=== PATIENT | male | born 1990 | race Two or more races ===

== ENCOUNTER 2023-01-16 13:02 | Emergency (ER) | payer OTHER ==
[2023-01-16 13:10] VITALS: BP 132/86; PULSE 78; RESP 20; TEMP 98.1; BMI 34.7
[2023-01-16] MEDS ORDERED: KETOROLAC TROMETHAMINE 30 MG/1 ML VIAL IVPUSH ONE (13:13)
[2023-01-16] MEDS ORDERED: ACETAMINOPHEN 500 MG TABLET (FP) PO ONE (13:13)
[2023-01-16] MEDS ORDERED: SODIUM CHLORIDE 0.9% 500 ML INFUS.BAG IV ONE (13:13)
[2023-01-16] MEDS ORDERED: KETOROLAC TROMETHAMINE 30 MG/1 ML VIAL ONE (13:40)
[2023-01-16] MEDS ORDERED: ACETAMINOPHEN 325 MG TABLET (FP) ONE (13:40)
[2023-01-16 14:03] LABS: BASO % 0.5 % (0-2.0); EOS % 2.6 % (0-4.5); HEMATOCRIT 47.3 % (35.4-49); HEMOGLOBIN 15.7 GM/dL (11.7-16.9); LYMPH % 31.4 % (8-40); MCH 28.8 pg (25.7-33.7); MCHC 33.2 g/dl (32.0-35.9); MEAN CELL VOLUME 86.8 fl (80-96); MEAN PLT VOLUME 10.1 fl (7.5-11.1); MONO % 6.8 % (3.8-10.2); NEUT % 58.7 % (42.8-82.8); PLATELET COUNT 195 10^3/uL (134-434); RBC 5.45 M/mm3 (4.00-5.60); RDW 13.5 % (11.9-15.9); WHITE BLOOD COUNT 6.3 K/mm3 (4.0-10.0)
[2023-01-16 14:21] LABS: EPI CELLS 3 /uL (0-25.1); HYALINE CASTS 0 /uL (0-3.1); PH,URINE 5.5 (5.0-8.0); URINE APPEARANCE CLOUDY; URINE BACTERIA 4 /uL (0-1359); URINE BILIRUBIN NEGATIVE (NEGATIVE); URINE COLOR RED; URINE GLUCOSE (UA) NEGATIVE (NEGATIVE); URINE KETONE NEGATIVE (NEGATIVE); URINE LEUK ESTERASE 1+ (NEGATIVE); URINE NITRITE NEGATIVE (NEGATIVE); URINE PROTEIN 1+ (NEGATIVE); URINE RBC 22675 /uL (0-23.9); URINE WBC 48 /uL (0-25.8)
[2023-01-16 14:22] LABS: POTASSIUM 4.5 mmol/L (3.5-5.1)
[2023-01-16 14:23] LABS: CALCIUM 9.3 mg/dL (8.5-10.1)
[2023-01-16 14:24] LABS: BLOOD UREA NITROGEN 11.8 mg/dL (7-18)
[2023-01-16] MEDS ORDERED: TAMSULOSIN HCL 0.4 MG CAP PO ONE (16:29)
[2023-01-16] MEDS ORDERED: TAMSULOSIN HCL 0.4 MG CAP ONE (16:37)
== END 2023-01-16 16:49 | disposition home or self-care (01) ==
LOC: JER 13:02
PROC: 3E033GC Introduction of Other Therapeutic Substance into Peripheral Vein, Percutaneous Approach (ICD-10-PCS; principal; 2023-01-16)
DX: N20.0 Calculus of kidney (principal)
CPT/HCPCS: 36415; 74176-TC; 80048; 81003; 85025; 87086; 99285-25

== ENCOUNTER 2023-02-03 02:19 | Day surgery (SDC) | payer OTHER ==
[2023-02-03 02:33] VITALS: BMI 29.7
[2023-02-03] MEDS ORDERED: KETOROLAC TROMETHAMINE 15 MG/ML VIAL IVPUSH ONE (02:44)
[2023-02-03] MEDS ORDERED: ONDANSETRON 4 MG/2 ML VIAL IVPUSH ONE ×2 (02:46→14:15)
[2023-02-03] MEDS ORDERED: KETOROLAC TROMETHAMINE 15 MG/ML VIAL ONE (02:50)
[2023-02-03] MEDS ORDERED: ONDANSETRON 4 MG/2 ML VIAL ONE ×2 (02:50→14:24)
[2023-02-03 03:21] LABS: BASO % 0.5 % (0-2.0); EOS % 3.6 % (0-4.5); HEMATOCRIT 45.6 % (35.4-49); HEMOGLOBIN 15.5 GM/dL (11.7-16.9); LYMPH % 44.9 % (8-40); MCH 28.4 pg (25.7-33.7); MCHC 33.9 g/dl (32.0-35.9); MEAN CELL VOLUME 83.7 fl (80-96); MONO % 9.4 % (3.8-10.2); NEUT % 41.6 % (42.8-82.8); PLATELET COUNT 216 10^3/uL (134-434); RBC 5.45 M/mm3 (4.00-5.60); RDW 13.4 % (11.9-15.9); WHITE BLOOD COUNT 8.9 K/mm3 (4.0-10.0)
[2023-02-03 03:24] LABS: POTASSIUM 3.3 mmol/L (3.5-5.1)
[2023-02-03 03:26] LABS: CALCIUM 8.9 mg/dL (8.5-10.1)
[2023-02-03 03:27] LABS: ALBUMIN 4.2 g/dl (3.4-5.0); BLOOD UREA NITROGEN 16.2 mg/dL (7-18)
[2023-02-03 03:32] LABS: BILIRUBIN,TOTAL 0.5 mg/dL (0.2-1); TOT PROT 8.2 g/dl (6.4-8.2)
[2023-02-03] MEDS ORDERED: LACTATED RINGERS SOLUTION 1000 ML INFUS.BAG IV ONE (03:55)
[2023-02-03] MEDS ORDERED: morphine CARPU-JECT 4 MG/1 ML DISP.SYRIN IVPUSH ONE (03:57)
[2023-02-03] MEDS ORDERED: morphine SULFATE 4 MG/ML VIAL ONE (04:02)
[2023-02-03 04:48] LABS: EPI CELLS 2 /uL (0-25.1); HYALINE CASTS 0 /uL (0-3.1); URINE APPEARANCE CLEAR; URINE BACTERIA 3 /uL (0-1359); URINE BILIRUBIN NEGATIVE (NEGATIVE); URINE COLOR YELLOW; URINE GLUCOSE (UA) NEGATIVE (NEGATIVE); URINE KETONE NEGATIVE (NEGATIVE); URINE LEUK ESTERASE NEGATIVE (NEGATIVE); URINE NITRITE NEGATIVE (NEGATIVE); URINE PROTEIN NEGATIVE (NEGATIVE); URINE RBC 17 /uL (0-23.9); URINE UROBILINOGEN 0.2 mg/dL (0.2-1.0); URINE WBC 9 /uL (0-25.8)
[2023-02-03 05:03] LABS: CREATININE 1.4 mg/dL (0.55-1.3)
[2023-02-03] MEDS ORDERED: SODIUM CHLORIDE 1,000 ML IV SCH (06:30)
[2023-02-03] MEDS ORDERED: ACETAMINOPHEN 325 MG TABLET (FP) ONE ×3 (06:31→18:36)
[2023-02-03] MEDS: ACETAMINOPHEN 325 MG TABLET (FP) PO SCH ×3 (06:40→18:39)
[2023-02-03] MEDS ORDERED: KETOROLAC TROMETHAMINE 15 MG/ML VIAL IVPUSH PRN ×2 (07:40→07:44)
[2023-02-03] MEDS ORDERED: TAMSULOSIN HCL 0.4 MG CAP ONE (08:32)
[2023-02-03] MEDS: TAMSULOSIN HCL 0.4 MG CAP PO SCH (08:41)
[2023-02-03] MEDS ORDERED: CEFTRIAXONE 1 GM/50 ML BAG ONE (09:10)
[2023-02-03] MEDS: CEFTRIAXONE 1 GM in DEXTROSE 5%-WATER - 50 ML IVPB SCH (09:43)
[2023-02-03 12:21] LABS: BASO % 0.4 % (0-2.0); EOS % 2.2 % (0-4.5); HEMATOCRIT 42.3 % (35.4-49); HEMOGLOBIN 14.3 GM/dL (11.7-16.9); LYMPH % 31.4 % (8-40); MCH 28.5 pg (25.7-33.7); MCHC 33.9 g/dl (32.0-35.9); MEAN PLT VOLUME 9.2 fl (7.5-11.1); PLATELET COUNT 155 10^3/uL (134-434); RBC 5.03 M/mm3 (4.00-5.60); WHITE BLOOD COUNT 7.1 K/mm3 (4.0-10.0)
[2023-02-03] MEDS ORDERED: LIDOCAINE 5% TOPICAL PATCH ONE (14:23)
[2023-02-03] MEDS: LIDOCAINE 5% TOPICAL PATCH TP SCH (14:29)
[2023-02-03] MEDS ORDERED: DEXTROSE 5%-NORMAL SALINE 1,000 ML IV SCH (18:45)
[2023-02-03] MEDS ORDERED: LIDOCAINE PATCH REMOVAL MC SCH (22:00)
[2023-02-04] MEDS: oxyCODONE HCL 5 MG TABLET PO PRN ×2 (00:01→08:56)
[2023-02-04] MEDS: ACETAMINOPHEN 325 MG TABLET (FP) PO PRN ×2 (00:03→08:55)
[2023-02-04] MEDS: ACETAMINOPHEN 325 MG TABLET (FP) PO SCH ×3 (00:10→13:26)
[2023-02-04] MEDS: TAMSULOSIN HCL 0.4 MG CAP PO SCH (08:56)
[2023-02-04] MEDS ORDERED: cefTRIAXone SODIUM 1 GM VIAL ONE (10:53)
[2023-02-04] MEDS ORDERED: KETOROLAC TROMETHAMINE 15 MG/ML VIAL IVPUSH PRN ×2 (10:56→11:08)
[2023-02-04] MEDS: CEFTRIAXONE 1 GM in DEXTROSE 5%-WATER - 50 ML IVPB SCH (10:57)
[2023-02-04] MEDS: LIDOCAINE 5% TOPICAL PATCH TP SCH (13:20)
[2023-02-04] MEDS ORDERED: PROPOFOL 40 ML ONE (13:50)
[2023-02-04] MEDS ORDERED: ceFAZolin SODIUM 1 GM VIAL IVPB ONE (14:19)
[2023-02-04] MEDS ORDERED: DEXAMETHASONE SOD PHOSPHATE 4 MG/1 ML VIAL ONE (14:36)
[2023-02-04] MEDS ORDERED: ceFAZolin SODIUM 1 GM VIAL ONE ×2 (14:36)
[2023-02-04] MEDS ORDERED: KETOROLAC TROMETHAMINE 30 MG/1 ML VIAL ONE (14:36)
[2023-02-04] MEDS ORDERED: ONDANSETRON 4 MG/2 ML VIAL ONE (14:36)
[2023-02-04] MEDS ORDERED: oxyCODONE HCL 5 MG TABLET PO PRN ×2 (14:45→15:36)
[2023-02-04] MEDS ORDERED: ONDANSETRON 4 MG/2 ML VIAL IVPUSH PRN ×2 (14:45→15:36)
[2023-02-04] MEDS ORDERED: DEXTROSE 5%-NORMAL SALINE 1,000 ML IV SCH (15:36)
[2023-02-04 16:31] VITALS: BP 128/80; PULSE 70; RESP 18
[2023-02-04 16:41] VITALS: TEMP 97.6
[2023-02-04] MEDS ORDERED: ACETAMINOPHEN 325 MG TABLET (FP) PO SCH (18:00)
[2023-02-04] MEDS ORDERED: LIDOCAINE PATCH REMOVAL MC SCH (22:00)
[2023-02-05] MEDS ORDERED: TAMSULOSIN HCL 0.4 MG CAP PO SCH (08:30)
[2023-02-05] MEDS ORDERED: LIDOCAINE 5% TOPICAL PATCH TP SCH (10:00)
[2023-02-05] MEDS ORDERED: CEFTRIAXONE 1 GM in DEXTROSE 5%-WATER - 50 ML IVPB SCH (10:00)
== END 2023-02-04 19:06 | disposition home or self-care (01) ==
LOC: JER 02:19 → UNDOADMOB 04:54 → JERBED 04:54 → J6S 21:20 → JERBED 21:20 → JASUSAT 02-04 10:49 → J6S 02-04 11:08 → JASUSAT 02-04 19:06
PROVIDERS: ATTEND Nurse Practitioner Family
PROC: 0T778DZ Dilation of Left Ureter with Intraluminal Device, Via Natural or Artificial Opening Endoscopic (ICD-10-PCS; principal; 2023-02-04 12:30)
DX: N20.0 Calculus of kidney (principal)
CPT/HCPCS: 36415; 74176-TC; 76000-TC-FY; 80053; 81003; 85025; 85027; 87086; 94760; 99285-25; C2617

== ENCOUNTER 2023-02-17 04:51 | Day surgery (SDC) | payer OTHER ==
[2023-02-16 08:19] VITALS: BMI 29.0
[2023-02-17] MEDS ORDERED: MIDAZOLAM HCL 2 MG/2 ML SINGLE DOSE VIAL ONE (13:30)
[2023-02-17] MEDS ORDERED: LIDOCAINE HCL/PF 2% SDV 5ML VIAL ONE (13:30)
[2023-02-17] MEDS ORDERED: PROPOFOL 20 ML ONE ×2 (13:30→13:42)
[2023-02-17] MEDS ORDERED: ceFAZolin SODIUM 1 GM VIAL IVPB ONE (13:45)
[2023-02-17] MEDS ORDERED: ceFAZolin SODIUM 1 GM VIAL ONE (13:48)
[2023-02-17] MEDS ORDERED: KETOROLAC TROMETHAMINE 30 MG/1 ML VIAL ONE (13:48)
[2023-02-17] MEDS ORDERED: DEXAMETHASONE SOD PHOSPHATE 4 MG/1 ML VIAL ONE (13:48)
[2023-02-17] MEDS ORDERED: ONDANSETRON 4 MG/2 ML VIAL ONE (13:48)
[2023-02-17] MEDS ORDERED: ONDANSETRON 4 MG/2 ML VIAL IVPUSH PRN (14:17)
[2023-02-17] MEDS ORDERED: oxyCODONE HCL 5 MG TABLET PO PRN (14:17)
[2023-02-17] MEDS ORDERED: LACTATED RINGERS SOLUTION 1,000 ML IV SCH (14:30)
[2023-02-17] MEDS ORDERED: oxyCODONE HCL 5 MG TABLET ONE (15:35)
[2023-02-17 15:46] VITALS: PULSE 82
[2023-02-17 15:50] VITALS: BP 125/85; TEMP 97.3
[2023-02-17 16:46] VITALS: RESP 20
== END 2023-02-17 16:46 | disposition home or self-care (01) ==
LOC: JASU-SURG 04:51
PROVIDERS: ATTEND Urology
PROC: 0T778DZ Dilation of Left Ureter with Intraluminal Device, Via Natural or Artificial Opening Endoscopic (ICD-10-PCS; 2023-02-17)
PROC: 0TC78ZZ Extirpation of Matter from Left Ureter, Via Natural or Artificial Opening Endoscopic (ICD-10-PCS; principal; 2023-02-17 13:30)
DX: N20.1 Calculus of ureter (principal)
CPT/HCPCS: 76000-TC-FY; 94760; C1758; C2617

== ENCOUNTER 2023-07-03 08:23 | Emergency (ER) | payer OTHER ==
[2023-07-03 08:38] VITALS: BMI 29.0
[2023-07-03] MEDS ORDERED: SODIUM CHLORIDE 0.9% 500 ML INFUS.BAG IV ONE (09:14)
[2023-07-03] MEDS ORDERED: KETOROLAC TROMETHAMINE 30 MG/1 ML VIAL IVPUSH ONE (09:14)
[2023-07-03] MEDS ORDERED: ONDANSETRON 4 MG/2 ML VIAL IVPUSH ONE (09:15)
[2023-07-03] MEDS ORDERED: KETOROLAC TROMETHAMINE 30 MG/1 ML VIAL ONE (09:34)
[2023-07-03] MEDS ORDERED: ONDANSETRON 4 MG/2 ML VIAL ONE (09:34)
[2023-07-03 09:57] LABS: URINE APPEARANCE CLEAR; URINE BILIRUBIN NEGATIVE (NEGATIVE); URINE COLOR YELLOW; URINE GLUCOSE (UA) NEGATIVE (NEGATIVE); URINE KETONE NEGATIVE (NEGATIVE); URINE LEUK ESTERASE NEGATIVE (NEGATIVE); URINE NITRITE NEGATIVE (NEGATIVE); URINE PROTEIN NEGATIVE (NEGATIVE); URINE UROBILINOGEN 0.2 mg/dL (0.2-1.0)
[2023-07-03 10:17] LABS: CHLORIDE 106 mmol/L (98-107); SODIUM 136 mmol/L (136-145)
[2023-07-03 10:20] LABS: BLOOD UREA NITROGEN 14.2 mg/dL (7-18); CALCIUM 9.4 mg/dL (8.5-10.1); CO2 27 mmol/L (21-32); GLUCOSE,RANDOM 95 mg/dL (74-106)
[2023-07-03 10:23] LABS: SGOT/AST 77 U/L (15-37)
[2023-07-03 10:24] LABS: TOT PROT 8.2 g/dl (6.4-8.2)
[2023-07-03 10:26] LABS: ALK PHOS 65 U/L (45-117)
[2023-07-03 10:40] LABS: ANION GAP 3 mmol/L (4-13); BILIRUBIN,TOTAL 0.5 mg/dL (0.2-1); POTASSIUM 6.2 mmol/L (3.5-5.1); SGPT/ALT 44 U/L (13-61)
[2023-07-03 10:46] LABS: BASO % 0.5 % (0-2.0); EOS % 1.3 % (0-4.5); HEMATOCRIT 46.3 % (35.4-49); LYMPH % 24.1 % (8-40); MCH 29.5 pg (25.7-33.7); MCHC 34.5 g/dl (32.0-35.9); MEAN CELL VOLUME 85.6 fl (80-96); MEAN PLT VOLUME 9.8 fl (7.5-11.1); MONO % 7.2 % (3.8-10.2); NEUT % 66.9 % (42.8-82.8); PLATELET COUNT 342 10^3/uL (134-434); RDW 13.6 % (11.9-15.9)
[2023-07-03 10:53] LABS: WHITE BLOOD COUNT 10.3 K/mm3 (4.0-10.0)
[2023-07-03 11:18] LABS: EPI CELLS 0.2 /uL (0-25.1); URINE RBC 0.7 /uL (0-23.9); URINE WBC 0.1 /uL (0-25.8)
[2023-07-03 13:07] VITALS: BP 127/89; PULSE 68; RESP 18; TEMP 98.1
== END 2023-07-03 13:39 | disposition home or self-care (01) ==
LOC: JER 08:23
PROC: 3E0333Z Introduction of Anti-inflammatory into Peripheral Vein, Percutaneous Approach (ICD-10-PCS; principal; 2023-07-03)
PROC: 3E033GC Introduction of Other Therapeutic Substance into Peripheral Vein, Percutaneous Approach (ICD-10-PCS; 2023-07-03)
DX: R10.9 Unspecified abdominal pain (principal); R11.0 Nausea; R30.0 Dysuria; R35.0 Frequency of micturition; N20.0 Calculus of kidney
CPT/HCPCS: 36415; 74176-TC; 80053; 81003; 84132; 85025; 87086; 99284-25

== ENCOUNTER 2023-07-27 21:10 | Emergency (ER) | payer OTHER ==
[2023-07-27 21:18] VITALS: TEMP 98; BMI 29.7
[2023-07-27] MEDS ORDERED: DEXAMETHASONE SOD PHOSPHATE 10 MG/1 ML VIAL ONE (22:17)
[2023-07-27] MEDS ORDERED: ACETAMINOPHEN 325 MG TABLET (FP) ONE (22:22)
[2023-07-27] MEDS ORDERED: ONDANSETRON *ODT* 4 MG TABLET ONE (22:22)
[2023-07-27] MEDS: ONDANSETRON 4 MG TABLET PO ONE (22:28)
[2023-07-27] MEDS: DEXAMETHASONE SOD PHOSPHATE 10 MG/1 ML VIAL IM ONE (22:28)
[2023-07-27] MEDS: ACETAMINOPHEN 325 MG TABLET (FP) PO ONE (22:28)
[2023-07-27] MEDS ORDERED: EPINEPHrine/PF 1 MG/1 ML (1:1,000) AMPULE ONE (23:43)
[2023-07-27] MEDS: EPINEPHrine 1:1,000 0.3 MG/0.3 ML SYR IM ONE (23:50)
[2023-07-27 23:51] VITALS: BP 135/95; PULSE 88; RESP 26
== END 2023-07-28 04:49 | disposition home or self-care (01) ==
LOC: JER 21:10
PROC: 3E023GC Introduction of Other Therapeutic Substance into Muscle, Percutaneous Approach (ICD-10-PCS; principal; 2023-07-27)
PROC: 3E023GC Introduction of Other Therapeutic Substance into Muscle, Percutaneous Approach (ICD-10-PCS; 2023-07-27)
PROC: 3E023GC Introduction of Other Therapeutic Substance into Muscle, Percutaneous Approach (ICD-10-PCS; 2023-07-27)
DX: T78.40XA Allergy, unspecified, initial encounter (principal); R00.0 Tachycardia, unspecified; L29.9 Pruritus, unspecified; R07.89 Other chest pain; R11.0 Nausea; R21 Rash and other nonspecific skin eruption; R07.0 Pain in throat
CPT/HCPCS: 93005; 93010; 96372; 99284-25; J0171; J1100